=== PATIENT | male | born 1985 | race Caucasian/White ===

== ENCOUNTER 2019-03-07 20:00 | Emergency (ER) | payer OTHER ==
--- NOTE | 2019-03-07 20:32 | ED Physician Documentation ---
PD HPI URI - Stated complaint Stated Complaint: WHEEZING,COUGH,SORE THROAT - Chief complaint Chief Complaint: Resp - History obtained from History obtained from: Patient - History of Present Illness Timing - onset: How many days ago (3-4 days ofCough and congestion with initially some mild wheezing and he has had increasing wheezing and dyspnea. He started with just mostly dry cough but has progressed into a congested cough with green yellow sputum. He does have a history of asthma. He has had some nasal congestion and sore throat so may be having a viral illness though concern for bacterial as well. He has had a fever the last couple of days. He describes general body aches.) Timing details: Gradual onset, Still present Associated symptoms: Fever, Nasal congestion, Sore throat, Productive cough, Dyspnea. No: NVD Contributing factors: COPD / asthma. No: Sick contact, Travel Similar symptoms before: Has not had sx before Recently seen: Not recently seen Review of Systems Constitutional: reports: Fever, Chills, Myalgias, Fatigue Nose: reports: Congestion. denies: Rhinorrhea / runny nose Throat: denies: Sore throat Cardiac: denies: Chest pain / pressure Respiratory: reports: Dyspnea, Cough, Wheezing GI: denies: Nausea, Vomiting, Diarrhea Neurologic: reports: Generalized weakness. denies: Near syncope, Altered mental status, Headache PD PAST MEDICAL HISTORY - Past Medical History Past Medical History: Yes Respiratory: Asthma Neuro: Migraines - Past Surgical History Past Surgical History: Yes HEENT: Tonsil/Adenoidectomy, Other - Present Medications Home Medications: Ambulatory Orders Medication Instructions Recorded Confirmed Albuterol Sulf [Ventolin Hfa 1 - 2 puffs INH Q4HR PRN 03/07/19 03/07/19 Inhaler] Benzonatate [Tessalon Perle] 100 - 200 mg PO TID PRN #30 capsule 03/07/19 Dexamethasone [Decadron] 4 mg PO DAILY #7 tablet 03/07/19 Doxycycline Hyclate 100 mg PO BID #20 capsule 03/07/19 Loratadine [Claritin] 10 mg PO DAILY 03/07/19 03/07/19 guaiFENesin/CODEINE [Robitussin AC] 10 ml PO Q6H PRN #240 ml 03/07/19 - Allergies Allergies/Adverse Reactions: Allergies Allergy/AdvReac Type Severity Reaction Status Date / Time Penicillins Allergy Unknown Verified 03/07/19 20:09 - Social History Does the pt smoke?: No Smoking Status: Never smoker Does the pt drink ETOH?: Yes Does the pt have substance abuse?: No - Immunizations Immunizations are current?: Yes - POLST Patient has POLST: No PD ED PE NORMAL - Vitals Vital signs reviewed: Yes - General General: Alert and oriented X 3, Well developed/nourished - HEENT HEENT: Ears normal, Moist mucous membranes, Pharynx benign - Neck Neck: Supple, no meningeal sign, No adenopathy, No JVD - Cardiac Cardiac: RRR, No murmur - Respiratory Respiratory: No: Clear bilaterally (He is having diffuse moderate wheezing. There is congested sounds in the left side more. There is no prolonged expiratory phase nor accessory muscle use. He is able to talk in sentences.) - Abdomen Abdomen: Soft, Non tender - Derm Derm: Normal color, Warm and dry - Extremities Extremities: No deformity, No tenderness to palpate, Normal ROM s pain, No edema - Neuro Neuro: Alert and oriented X 3, No motor deficit, Normal speech Results - Vitals Vitals: Vital Signs - 24 hr 03/07/19 20:06 Temperature 37.8 C H Heart Rate 95 Respiratory 18 Rate Blood Pressure 169/78 H O2 Saturation 97 Oxygen O2 Source Room air - Labs Labs: Laboratory Tests 03/07/19 20:50 Influenza A (Rapid) Negative Influenza B (Rapid) Negative PD MEDICAL DECISION MAKING - ED course Complexity details: reviewed results (negative flu test, so could still be flu or other viral, but concern for bacterial. ), re-evaluated patient (Improved wheezing with couple of nebulizer treatments. His flu test is negative. Concern for viral versus bacterial and will treat for possible bacterial given his history of asthma. Will give steroids and medicine for cough as well. He looks stable enough for discharge and treatment as outpatient.), considered differential, d/w patient Departure - Departure Disposition: 01 Home, Self Care Clinical Impression: Lower resp. tract infection Exacerbation of intermittent asthma Qualifiers: Asthma severity: mild Qualified Code(s): J45.21 - Mild intermittent asthma with (acute) exacerbation Condition: Stable Record reviewed to determine appropriate education?: Yes Instructions: ED Bronchitis Asthmatic Follow-Up: NIMISHA BETANCOURT MD [Primary Care Provider] - Prescriptions: Benzonatate [Tessalon Perle] 100 - 200 mg PO TID PRN #30 capsule PRN Reason: Cough Dexamethasone [Decadron] 4 mg PO DAILY #7 tablet Doxycycline Hyclate 100 mg PO BID #20 capsule guaiFENesin/CODEINE [Robitussin AC] 10 ml PO Q6H PRN #240 ml PRN Reason: Cough Comments: Continue your albuterol inhaler 2-3 puffs 4 times a day and extra times as needed for wheezing. Add Decadron steroid for a week for the inflammation of the airways. Doxycycline antibiotic twice daily for a week for potential b acterial cause. This may still be viral but hard to tell. Your flu test is negative. For the cough itself use Tessalon as needed and add stronger cough medicine if needed as well. Stay well-hydrated. Recheck if not improving over the next few days.
[2019-03-07] MEDS ORDERED: CHERRY SYRUP 10 ML UDC PO ONE (20:44)
[2019-03-07] MEDS ORDERED: DEXAMETHASONE 10 MG/ML VIAL PO STA (20:44)
[2019-03-07] MEDS ORDERED: BENZONATATE 100 MG CAPSULE PO STA (20:44)
[2019-03-07] MEDS ORDERED: ALBUTEROL NEB 2.5 MG/3 ML INH STA (20:44)
[2019-03-07] MEDS ORDERED: IPRATROPIUM/ALBUTEROL 3 ML NEB INH STA (21:40)
[2019-03-07] MEDS ORDERED: DOXYCYCLINE 100 MG TABLET PO STA (21:40)
[2019-03-07 22:05] VITALS: BP 143/73
== END 2019-03-07 22:05 | disposition home or self-care (01) ==
LOC: ED 20:00
DX: J22 Unspecified acute lower respiratory infection (principal); J45.21 Mild intermittent asthma with (acute) exacerbation
CPT/HCPCS: 87275; 87276; 94640; 99283; A9270

== ENCOUNTER 2020-09-19 11:10 | Outpatient (CLI) | payer OTHER ==
--- NOTE | 2020-09-19 12:27 | SLEEP CARE CONSULTATION ---
Information from patient questionnaire entered by Ellen Vaughan. I have reviewed and concur with the information entered by Ellen Vaughan. This document represents the service I personally performed and the decisions made by me, Ernestina Polk ARNP. History of Present Illness Service Date and Time: 09/19/2020 1110 Reason for Visit: New patient, Previously diagnosed sleep apnea, sleep apnea on CPAP therapy Chief Complaint: reports: Unrefreshed sleep, Excessive daytime sleepiness, Fatigue, Other (headache, sore throat, dry eye). denies: Insomnia, Snoring, Observed pauses in breathing, Frequent awakenings at night Date of Onset: 12 years Usual bedtime: 2300 Time it takes to fall asleep: less than 5 minutes Snores at night: Yes (with and without CPAP) Observed to quit breathing while asleep: Yes Sleeps alone due to snoring: Yes Number of times waking at night: 0 Reasons for waking at night: reports: Bathroom (on occasion). denies: Choking, Snoring, Gasping for air Toss, Turn, or Twitch while sleeping: Yes Recalls having dreams: No Usually gets out of bed at: 0500 Feels refreshed in the morning: No Morning headache: Yes (not as often with use of CPAP; hx of migraines) Sleepy or fatigued during the day: Yes Ever fallen asleep while driving: No Takes day naps: No Dreams during day naps: No Prior sleep studies: Yes Year and Where: 2007 [facility] [place], [place] Type of Sleep Study: Polysomnography Additional HPI information: I had the pleasure of seeing ALON ELIZABETH today to establish care for CPAP therapy. His current complaints are current diagnosis of obstructive sleep apnea, snoring, unrefreshed sleep, excessive daytime sleepiness, fatigue, headaches, sore throat and dry eye. He states he needs to establish care with a sleep center to look into getting the Inspire implant for his VERONIKA. He was referred by his doctor due to an incident with dry eyes. He woke up and his eyes were so dry that the cornea stuck to the eyelid on his right eye and when he opened his eyes he sheered off a thin layer of the cornea in the last week of July. He was seen by his eye doctor and is currently under care for this injury. He also does have a history of PRK 2007 (right around the time he started using the CPAP machine. He has issues with air blowing in his eyes. He has tried using a sleeping eye mask but it interferes with the mask fitting to his face and he has more air leaking. Recently he has been using eye protection covers for tanning beds on his eyes at night and this does seem to be helping reduce air in his eyes. He is using several moisturizing eye drops prescribed by his eye doctor. He would like to see if he could get the Inspire implant to see if this would reduce his eye dryness and other complication development. - Parasomnia Symptoms Ever been unable to move upon waking from sleep: No Walks in sleep: Yes (only as a child) Talks in sleep: No Ever acted out dreams in sleep: No Ever felt weak in the knees when startled or emotional: No Bothered by creepy, crawly, restless sensations in legs: Yes (itching sometimes in the evening, 5-9 PM ) Problems with memory or concentration: Yes CPAP Compliance Data - Data Reviewed with Patient Average duration of nightly device use: 4 hours 53 minutes Compliance rate %: 70 Current pressure setting (cmH2O): 6-17 Humidity settin Heated hose settin Average residual AHI: 2.3 Average large leak: 28 seconds Compliance data discussion: Michael, 1st time getting supplies from them. He has talked them but has not gotten any supplies yet. He is using a full face mask [employer]. He has not been able to change the mask cushion since November. Subjective Missed days of use due to: reports: other (not putting mask on before going to sleep; fall asleep on couch without it) Patient concerns: reports: aerophagia (most mornings pretty gassy), air blowing in eyes (has issue since PRK; worse lately), mask leak noise (increases when turning and mask is needing to be changed). denies: mask discomfort, condensation in mask/hose, nasal congestion, dry mouth, nose, throat, epistaxis, other Observed to snore while using device: Yes (better with mask on) Current pressure setting perceived as: comfortable On therapy, patient: reports: sleeping better (can depend on the day), awakening more refreshed, being more awake and alert during the day, more rested overall (can depend on day). denies: drowsiness while driving Initial Jasper Sleepiness Scale score: 13 (in 2020) Past Medical History Past Medical History: reports: Anxiety, Asthma, Depression, Attention deficit (Obstructive Sleep Apnea, Migraines, ADHD, Seasonal Allergies, [place]en [place], PTSD, dry eye, irritable bowel syndrome). denies: Hypertension, Congestive Heart Failure, Coronary Heart Disease, Arrythmia, Hypothyroidism, Anemia, Impotence, Mood disorder, GERD Social History The patient's occupation is active . Patient is and lives in [place]. Have you smoked in the past 12 months: No Alcohol use: Yes Alcohol amount and frequency: 2-3 drinks/month Caffeine use: Yes Caffeine amount and frequency: energy drink, 2-4 times/week, occassional coffee Family History Family history of sleep disordered breathing: Yes Family Hx Sleep Apnea: Grandparent: Sleep apnea - Untreated Allergies and Home Medications Drug allergies reviewed: Yes (penicillin) Home medication list reviewed: Yes Allergy and home medication list: Adderall R extended release 20 mg Doxycycline hyclate 100 mg Lotemax 0.5% ophthalmic suspension Refresh Plus ophthalmic solution Naprosyn Atenolol 25 mg Claritin 10 mg Sumatriptan 100 mg Paroxetine 10 mg Ocular lubricant preserved ophthalmic solution Flonase 50 mcg/inh nasal spray [employer] Sport Daily Multivitamin Potassium Gluconate supplement 595 mg Vitamin B2 Riboflavin 400 mg Review of Systems Weight gain over past 5 years: 32 Cardiovascular: reports: other (rapid/intense heartbeat). denies: high blood pressure, palpitations, chest pain, irregular heart rate or pulse, leg or foot swelling Respiratory: reports: shortness of breath Gastrointestinal: reports: heartburn, diarrhea. denies: difficulty swallowing Urinary: denies: impotence Neurological: reports: headaches, disorientation, other (dizziness). denies: seizure, head trauma, speech dysfunction, gait or balance problems Psychiatric: reports: Attention Deficit Hyperactivity, anxiety, depression, other (minor PTSD). denies: mood disorder, claustrophobia Ear/Nose/Throat: reports: nasal congestion (seasonal allergies), dry mouth/throat, tonsillectomy, wisdom teeth removed, other (ear congestion/have to pop ears to relieve pressure). denies: sinus problems, nose bleeds, hoarseness, injury to nose Endocrine: reports: sluggishness, too hot or cold (*hot), excessive thirst, increased appetite, other (excessive sweating) Musculoskeletal: reports: joint pain, muscle pain or cramping, other (i nvoluntary muscle twinges) Immunologic: reports: sneezing, itching, allergies to food or environment (*environment) Physical Exam Blood Pressure: 120/68 Cuff size: long Heart Rate: 63 O2 Saturation: 99 Height: 5 ft 8 in Weight: 254 lb Body Mass Index: 38.6 BMI Classification: Obese HEENT: No craniofacial malformation Nostrils: patent to airflow Turbinates: normal Septum: midline Mouth and throat: narrow oropharynx Soft palate: normal Hard palate: normal Uvula: normal Uvula visualization: 25% Mallampati Class III Tongue: enlarged in size with teeth izquierdo on lateral edges Tonsils: absent bilaterally Chin and jaw: normal size and position Neck: normal w/o lymphadenopathy or thyromegaly Heart: regular rate and rhythm Lungs: clear bilaterally Impression and Plan 1. Obstructive Sleep Apnea-Hypopnea Syndrome, unknown, with fair treatment compliance and good apnea control. On CPAP therapy, there is improved sleep quality and feels more rested overall. Patient has been having increasing aerophagia. To reduce symptoms of aerophagia, the CPAP pressure will be reduced to 8-12 cmH2O. Patient advised to contact me if this does not reduce symptoms or if p ressure change uncomfortable. Patient would like to see if he can be evaluated for the Inspire device. I will discuss this with our community relations director and let patient know later if this is something we can do or if a referral could be made for evaluation. I discussed with patient that we need a copy of his last sleep study to verify diagnosis and severity. If we are unable to obtain a copy a sleep study would need to be redone. He has gained 32 pounds gradually over the last 5 years. Patient's apnea severity and rationale for treatment to reduce apnea, improve sleep quality and reduce cardiovascular and cerebrovascular events was reviewed. I also reviewed the benefit of consistent device use of CPAP for depression/anxiety and migraines. Change auto CPAP pressure at 8-12 cm H2O. Obtain copy of last sleep study to verify diagnosis Notify me if snoring with the mask or feeling that the pressure is too much or too little. Attempt to lose weight. A repeat polysomnography study will be ordered if we are unable to obtain a copy of last sleep study. Consult medical surgery nurse about a possible evaluation or referral for the Inspire device implant Return for follow-up in 1-2 months, or sooner if concerns arise. Counseling Topics: Spare mask, Weight loss health impact Visit Type: In Office Time Spent with Patient (minutes): 40 Provider Statement: I spent 100% of the Face to Face Visit with the patient with greater than 50% spent counseling the patient and coordination of care.
[2020-09-19 12:28] VITALS: BP 120/68
== END 2020-09-19 11:11 | disposition home or self-care (01) ==
LOC: SC 11:10
PROVIDERS: ATTEND Nurse Practitioner Family
DX: G47.33 Obstructive sleep apnea (adult) (pediatric) (principal); E66.9 Obesity, unspecified; Z68.38 Body mass index [BMI] 38.0-38.9, adult
CPT/HCPCS: 99203; 99212